=== PATIENT | female | born 1940 | race Caucasian/White ===

== ENCOUNTER 2022-03-24 12:32 | Outpatient (REF) | payer MEDICARE, BC, SELFPAY ==
[2022-03-24 13:01] LABS: Appearance Urine Cloudy (Clear); Bilirubin Urine Negative (Negative); Blood Urine 2+ (Negative); Color Urine Yellow (Yellow); Glucose Urine Trace (Negative); Ketones Urine Negative (Negative); Leukocyte Esterase Urine 3+ (Negative); Nitrite Urine Positive (Negative); Protein Urine 1+ (Negative); pH Urine 5.5 (5.0-8.5)
[2022-03-24 13:19] LABS: Bacteria Urine Many; Squamous Epithelial Cell Urine Moderate (None-Few)
== END 2022-03-24 12:33 | disposition home or self-care (01) ==
LOC: NPINS 12:32
PROVIDERS: PCP Family Medicine; Visit Provider Nurse Practitioner Gerontology
DX: R39.15 Urgency of urination (principal)
CPT/HCPCS: 81001; 87086; 87186

== ENCOUNTER 2022-04-19 09:06 | Outpatient (REF) | payer BC, SELFPAY ==
[2022-04-19 10:14] LABS: Basophils Absolute Auto 0.02 K/uL (0.00-0.30); Basophils Percent Auto 0.4 % (0.0-3.0); Eosinophils Absolute Auto 0.02 K/uL (0.00-0.50); Eosinophils Percent Auto 0.4 % (0.0-7.0); Hematocrit 26.9 % (33.0-51.0); Hemoglobin* 9.2 gm/dL (12.0-16.0); Immature Granulocytes Abs Auto 0.02 K/uL (0.00-0.30); Immature Granulocytes Pct Auto 0.4 %; Lymphocytes Absolute Auto 1.38 K/uL (0.90-2.90); Lymphocytes Percent Auto 30.4 % (20-44); Mean Corpuscular HGB Conc 34 gm/dL (32-36); Mean Corpuscular Hemoglobin 30 pg (26-34); Mean Corpuscular Volume 88 fL (80-100); Monocytes Percent Auto 10.4 % (0.0-11.0); Neutrophils Absolute Auto 2.63 K/uL (1.7-7.0); Platelet Count* 154 K/uL (140-440); RDW Coefficient of Variation % 12.1 % (11.5-15.5); Red Blood Count 3.05 m/uL (4.00-5.20); White Blood Count* 4.54 K/uL (4.50-11.00)
[2022-04-19 10:15] LABS: Chloride* 99 mmol/L (96-114); Potassium* 4.6 mmol/L (3.6-5.1); Sodium* 136 mmol/L (135-149)
[2022-04-19 10:18] LABS: Carbon Dioxide* 26 mmol/L (20-32); Creatinine* 1.9 mg/dL (0.5-1.5); Estimated Glomerular Filt Rate 26 ml/min; Slide Review Reflex Yes
[2022-04-19 10:19] LABS: Blood Urea Nitrogen* 48 mg/dL (7-30); Calcium* 9.6 mg/dL (8.4-10.6); Glucose* 215 mg/dL (60-115)
[2022-04-19 10:31] LABS: Hemoglobin A1C* 9.84 % (0-5.6)
[2022-04-19 10:43] LABS: Slide Review Acceptable Review (Acceptable)
== END 2022-04-19 09:07 | disposition home or self-care (01) ==
LOC: NPINS 09:06
PROVIDERS: PCP Family Medicine; Visit Provider Nurse Practitioner Gerontology
DX: E11.9 Type 2 diabetes mellitus without complications (principal)
CPT/HCPCS: 80048; 83036; 85025

== ENCOUNTER 2022-05-24 20:22 | Outpatient (CLI) | payer BC, SELFPAY | END 2022-05-24 20:23 | disposition home or self-care (01) | LOC: AMB 06-02 20:11 | PROVIDERS: PCP Family Medicine; Visit Provider Family Medicine | DX: R55 Syncope and collapse (principal) | CPT/HCPCS: A0425; A0427 ==

== ENCOUNTER 2022-05-24 20:38 | Emergency (ER) | payer BC, SELFPAY ==
[2022-05-24 20:52] VITALS: BP 142/93; PULSE 97; RESP 20; TEMP 36.4; O2SAT 95
--- NOTE | 2022-05-24 21:52 | CRLHL7_ITS ---
For Patients: As a result of the Century Cures Act, medical imaging exams and procedure reports are released immediately into your electronic medical record. You may view this report before your referring provider. If you have questions, please contact your health care provider. INDICATION: Altered mental status. TECHNIQUE: Chest 1 view(s) COMPARISON: None. FINDINGS: Cardiomediastinal silhouette and pulmonary vasculature are normal. Relatively symmetric prominence of the bilateral interstitial lung markings. No focal consolidation. No significant layering pleural effusion, no definite pneumothorax. No acute chest wall abnormality. IMPRESSION: Symmetric prominence of the bilateral interstitial lung markings, may reflect chronic senescent/fibrotic changes versus mild pulmonary edema. No focal consolidation. Dictated by Yun Elizondo MD @ 05/24/2022 10:20:09 PM (Electronically Signed)
[2022-05-24] MEDS: 0.9 % SODIUM CHLORIDE 1000 ml 1,000 ML IV (22:00)
[2022-05-24 22:06] LABS: Basophils Absolute Auto 0.02 K/uL (0.00-0.30); Basophils Percent Auto 0.3 % (0.0-3.0); Eosinophils Absolute Auto 0.01 K/uL (0.00-0.50); Eosinophils Percent Auto 0.2 % (0.0-7.0); Hematocrit 28.4 % (33.0-51.0); Hemoglobin* 9.9 gm/dL (12.0-16.0); Immature Granulocytes Abs Auto 0.01 K/uL (0.00-0.30); Immature Granulocytes Pct Auto 0.2 %; Lymphocytes Percent Auto 11.7 % (20-44); Mean Corpuscular HGB Conc 35 gm/dL (32-36); Mean Corpuscular Hemoglobin 30 pg (26-34); Mean Corpuscular Volume 85 fL (80-100); Monocytes Percent Auto 5.9 % (0.0-11.0); Neutrophils Percent Auto 81.7 % (42.0-72.0); Platelet Count* 207 K/uL (140-440); RDW Coefficient of Variation % 12.2 % (11.5-15.5); Red Blood Count 3.33 m/uL (4.00-5.20)
[2022-05-24 22:12] LABS: Slide Review Reflex No
[2022-05-24 22:14] LABS: PCR FLU A Negative PCR FLU A (Negative); PCR FLU B Negative PCR FLU B (Negative); PCR RSV Negative PCR RSV (Negative)
[2022-05-24 22:19] LABS: SARS PCR* Negative SARS-CoV-2 (Negative)
[2022-05-24 22:20] LABS: Chloride* 97 mmol/L (96-114); Potassium* 4.6 mmol/L (3.6-5.1); Sodium* 133 mmol/L (135-149)
[2022-05-24 22:23] LABS: Creatinine* 1.3 mg/dL (0.5-1.5); Estimated Glomerular Filt Rate 41 ml/min
[2022-05-24 22:24] LABS: Blood Urea Nitrogen* 30 mg/dL (7-30); Calcium* 9.9 mg/dL (8.4-10.6); Carbon Dioxide* 26 mmol/L (20-32)
[2022-05-24 22:40] LABS: C Reactive Protein* < 0.5 mg/dL (0.5-1.0); Glucose* 605 mg/dL (60-115)
[2022-05-24 23:00] VITALS: O2SAT 96
--- NOTE | 2022-05-24 23:00 | ED.NURSE ---
Straight cath and drained 400mL of clear, yellow urine. 2 sets of bl cx collected. #20G IV established in R AC. Arm board in place, IVF infusing well.
[2022-05-24 23:13] LABS: Appearance Urine Clear (Clear); Bilirubin Urine Negative (Negative); Blood Urine Negative (Negative); Color Urine Yellow (Yellow); Glucose Urine 3+ (Negative); Ketones Urine Negative (Negative); Leukocyte Esterase Urine Negative (Negative); Nitrite Urine Negative (Negative); Protein Urine Negative (Negative); Urobilinogen Urine 0.2 (0.2-1.0); pH Urine 5.5 (5.0-8.5)
[2022-05-24 23:24] LABS: RBC Urine 0-2 (0-2); Squamous Epithelial Cell Urine Few (None-Few); WBC Urine 0-2 (0-5)
[2022-05-24 23:39] VITALS: PULSE 80; RESP 18; O2SAT 96
--- NOTE | 2022-05-24 23:54 | ED.NURSE ---
Report given to CRISTO Chan.
--- NOTE | 2022-05-25 00:11 | ED.NURSE ---
Patient remains confused in room. Patient is able to sit on the edge of the bed, but cannot stand x 2 assist.
--- NOTE | 2022-05-25 00:13 | CRLHL7_ITS ---
For Patients: As a result of the Century Cures Act, medical imaging exams and procedure reports are released immediately into your electronic medical record. You may view this report before your referring provider. If you have questions, please contact your health care provider. INDICATION: Altered mental status. TECHNIQUE: Head CT without contrast. COMPARISON: None. FINDINGS: CSF spaces: Within normal limits for age. Brain parenchyma: Mild generalized cerebral and cerebellar atrophy. Patchy white matter low attenuation changes, nonspecific but likely reflecting chronic small vessel ischemic disease. No sign of mass, hemorrhage, or midline shift. Atherosclerotic calcifications of the cavernous carotids and carotid siphons. Skull base and calvarium: Mild mucosal thickening left maxillary sinus. Mastoid air cells are clear. The visualized orbits are grossly unremarkable. No skull fractures. IMPRESSION: 1. No acute intracranial hemorrhage or mass effect. 2. Senescent changes including mild generalized volume loss, chronic small vessel ischemic disease, and intracranial carotid atherosclerotic calcifications. Please note that all CT scans at this facility use dose modulation, iterative reconstruction, and/or weight-based dosing when appropriate to reduce radiation dose to as low as reasonably achievable. Dictated by Bashir Matthews MD @ 05/25/2022 12:46:33 AM (Electronically Signed)
[2022-05-25 00:23] LABS: Troponin I* < 0.01 ng/mL (0.01-0.04)
[2022-05-25 00:24] LABS: NT Pro B Type NatriureticPept* 820 pg/mL
--- NOTE | 2022-05-25 00:24 | ED.GENADULT ---
HPI - General Adult General Chief complaint: Diabetic Related Problem Stated complaint: Diabetic Complications Time Seen by Provider: 05/24/22 21:00 History of Present Illness HPI narrative: 82-year-old woman brought to the emergency department by EMS after being found head slumped forward and drooling in her chair. Was laid on the ground and then assessed by EMS. Apparently was presumed to be weaker. She is definitely fearful. Reportedly normal baseline is ambulatory and communicative but is only demonstrating fearfulness and batting away care providers and when I assess her is requesting that someone kill her please. Is alternately accusing others of stealing her baby. Enquiring about pain she does not really answer the question directly but does not appear to be in any focal pain. Underlying history of dementia and diabetes. Treated with metformin. Has been known to be affected by urinary tract infections in the past. Blood sugar by EMS noted at 594. Related Data Home Medications Medication Instructions Recorded Confirmed amlodipine 5 mg tablet 5 mg PO DAILY 05/24/22 05/24/22 atenolol 50 mg tablet 50 mg PO DAILY 05/24/22 05/24/22 atorvastatin 20 mg tablet 20 mg PO HS 05/24/22 05/24/22 carbamide peroxide 6.5 % ear drops 3 drp otic (ear) HS 05/24/22 05/24/22 (Debrox) famotidine 20 mg tablet 20 mg PO DAILY 05/24/22 05/24/22 lisinopril 40 mg tablet 40 mg PO DAILY 05/24/22 05/24/22 metformin 500 mg tablet,extended 1,000 mg PO HS 05/24/22 05/24/22 release 24 hr mirtazapine 15 mg tablet 15 mg PO DAILY 05/24/22 05/24/22 Allergies Allergy/AdvReac Type Severity Reaction Status Date / Time nut - unspecified Allergy Verified 05/24/22 20:59 peanut Allergy Verified 05/24/22 20:59 sulfamethoxazole Allergy Verified 05/24/22 20:59 [From Sulfamethoxazole-Trimethoprim] tree nut Allergy Verified 05/24/22 20:59 trimethoprim Allergy Verified 05/24/22 20:59 [From Sulfamethoxazole-Trimethoprim] Review of Systems Status of ROS: Reports: unobtainable due to mental status PFSH PFSH Social History Smoking Status: Unknown if ever smoked Exam Narrative: Exam Narrative: Appears to be afraid otherwise in no distress. Curled up on her left side. Head looks to be atraumatic. Cranial nerves 2 through 12 to be intact. Is breathing easily. Lungs appear to be clear. Oropharynx is moist though there is dried spittle on her lips. Neck is supple appears to be nontender. Back is without deformity other than some mild kyphotic change in the upper spine. Nontender. Cardiovascular appears to be in a regular rate and rhythm --due to vocalizations cannot really assess for murmur rub or gallop. Abdomen is soft. At this time she is also crying out but I believe actually to be nontender. Certainly able to move all extremities and is well perfused. Const: Vital Signs, click to edit/add: Vital Signs - 24 hr 05/24/22 20:52 05/24/22 23:39 05/24/22 23:00 Temperature 97.5 F L Pulse Rate [Pulse Oximeter] 97 80 Respiratory Rate 20 18 Blood Pressure [Ri ght Upper Arm] 142/93 H Pulse Oximetry 95 96 96 Oxygen Delivery Me thod Room Air Room Air 05/25/22 01:41 Temperature Pulse Rate [Pulse Oximeter] Respiratory Rate Blood Pressure [Ri ght Upper Arm] Pulse Oximetry 96 Oxygen Delivery Me thod Documenting provider has reviewed patient's vital signs: yes Course Consultations Consultation #1: Workup complete attempted to call all family members/emergency contacts at all numbers listed. No responses. I am anticipating sleeping in the emergency department overnight with re-evaluation in the morning. Handing off at change of shift. Time: 01:24 Vital Signs Vital signs: Initial Vital Signs Temperature 97.5 F L 05/24/22 20:52 Temperature Source Temporal Artery Scan 05/24/22 20:52 Pulse Rate 97 05/24/22 20:52 Respiratory Rate 20 05/24/22 20:52 Blood Pressure 142/93 H 05/24/22 20:52 Blood Pressure Mean 109 05/24/22 20:52 Blood Pressure Position Supine 05/24/22 20:52 Pulse Oximetry 95 05/24/22 20:52 Oxygen Delivery Method 05/24/22 20:52 Vital Signs Temperature 97.5 F L 05/24/22 20:52 Pulse Rate 97 05/24/22 20:52 Respiratory Rate 20 05/24/22 20:52 Blood Pressure 142/93 H 05/24/22 20:52 Pulse Oximetry 95 05/24/22 20:52 Oxygen Delivery Method 05/24/22 20:52 Temperature 97.5 F L 05/24/22 20:52 Pulse Rate 80 05/24/22 23:39 Respiratory Rate 18 05/24/22 23:39 Blood Pressure 142/93 H 05/24/22 20:52 Pulse Oximetry 96 05/25/22 01:41 Oxygen Delivery Method 05/24/22 23:39 Medical Decision Making MDM Narrative Medical decision making narrative: No focal findings on exam. Inclination is initially to obtain urinalysis and triple screen. But with both of these unremarkable and upon confirming usual level of cognition and mobility much higher, proceed with further laboratory evaluation. IV hydration as well. Blood sugar was in the 420s earlier today on review of records. Over 600 on BMP now. Probably not particularly useful to give insulin but perhaps affect of dosing would be useful to know on blood sugar and though doubtful, just possibly would affect mental status. In lab evaluation there is no indication of infection or other abnormality other than mildly low hemoglobin. Chest x-ray does not appear to show infiltrate by my read. CT scan head by my read looks unremarkable for acute abnormality. I did have one brief conversation with Ms. Posey where was seen briefly lucid and insert a few questions yes or no indicating no pain and asked or clearly who I was accepting me answer. On nursing evaluation with efforts to mobilize, was again confused, fearful and either not able to cooperate or without the strength to stand unassisted. accu check pending Medical Records Medical records reviewed: Yes I reviewed the patient's medical records Lab Data Lab results reviewed: Yes I reviewed the patient's lab results Labs: Lab Results 05/24/22 05/24/22 05/24/22 Range/Units 21:30 21:52 21:52 WBC 5.80 (4.50-11.00) K/uL RBC 3.33 L (4.00-5.20) m/uL Hgb 9.9 L (12.0-16.0) gm/dL Hct 28.4 L (33.0-51.0) % MCV 85 (80-100) fL MCH 30 (26-34) pg MCHC 35 (32-36) gm/dL RDW Coeff of Asim 12.2 (11.5-15.5) % Plt Count 207 (140-440) K/uL Neut % (Auto) 81.7 H (42.0-72.0) % Lymph % (Auto) 11.7 L (20-44) % Waller % (Auto) 5.9 (0.0-11.0) % Eos % (Auto) 0.2 (0.0-7.0) % Baso % (Auto) 0.3 (0.0-3.0) % Neut # (Auto) 4.70 (1.7-7.0) K/uL Lymph # (Auto) 0.70 L (0.90-2.90) K/uL Waller # (Auto) 0.30 (0.00-0.90) K/UL Eos # (Auto) 0.01 (0.00-0.50) K/uL Baso # (Auto) 0.02 (0.00-0.30) K/uL Abs Immat Gran (auto) 0.01 (0.00-0.30) K/uL Imm/Tot Granulo (auto) 0.2 % Sodium 133 L (135-149) mmol/L Potassium 4.6 (3.6-5.1) mmol/L Chloride 97 (96-114) mmol/L Carbon Dioxide 26 (20-32) mmol/L BUN 30 (7-30) mg/dL Creatinine 1.3 (0.5-1.5) mg/dL Estimated GFR 41 ml/min Glucose 605 H* (60-115) mg/dL Calcium 9.9 (8.4-10.6) mg/dL Troponin I < 0.01 L (0.01-0.04) ng/mL C-Reactive Protein < 0.5 L (0.5-1.0) mg/dL NT-Pro-B Natriuret Pep 820 pg/mL Urine Color (Yellow) Urine Appearance (Clear) Urine pH (5.0-8.5) Ur Specific [place]idge (1.000-1.030) Urine Protein (Negative) Urine Glucose (UA) (Negative) Urine Ketones (Negative) Urine Blood (Negative) Urine Nitrite (Negative) Urine Bilirubin (Negative) Urine Urobilinogen (0.2-1.0) Ur Leukocyte Esterase (Negative) Urine RBC (0-2) Urine WBC (0-5) Ur Squamous Epith Cells (None-Few) Urine Bacteria (None) SARS-CoV-2 (PCR) Negative SARS-CoV-2 (Negative) Influenza Type A (PCR) Negative PCR FLU A (Negative) Influenza Type B (PCR) Negative PCR FLU B (Negative) RSV (PCR) Negative PCR RSV (Negative) 05/24/22 Range/Units 23:01 WBC (4.50-11.00) K/uL RBC (4.00-5.20) m/uL Hgb (12.0-16.0) gm/dL Hct (33.0-51.0) % MCV (80-100) fL MCH (26-34) pg MCHC (32-36) gm/dL RDW Coeff of Asim (11.5-15.5) % Plt Count (140-440) K/uL Neut % (Auto) (42.0-72.0) % Lymph % (Auto) (20-44) % Waller % (Auto) (0.0-11.0) % Eos % (Auto) (0.0-7.0) % Baso % (Auto) (0.0-3.0) % Neut # (Auto) (1.7-7.0) K/uL Lymph # (Auto) (0.90-2.90) K/uL Waller # (Auto) (0.00-0.90) K/UL Eos # (Auto) (0.00-0.50) K/uL Baso # (Auto) (0.00-0.30) K/uL Abs Immat Gran (auto) (0.00-0.30) K/uL Imm/Tot Granulo (auto) % Sodium (135-149) mmol/L Potassium (3.6-5.1) mmol/L Chloride (96-114) mmol/L Carbon Dioxide (20-32) mmol/L BUN (7-30) mg/dL Creatinine (0.5-1.5) mg/dL Estimated GFR ml/min Glucose (60-115) mg/dL Calcium (8.4-10.6) mg/dL Troponin I (0.01-0.04) ng/mL C-Reactive Protein (0.5-1.0) mg/dL NT-Pro-B Natriuret Pep pg/mL Urine Color Yellow (Yellow) Urine Appearance Clear (Clear) Urine pH 5.5 (5.0-8.5) Ur Specific [place] 1.010 (1.000-1.030) Urine Protein Negative (Negative) Urine Glucose (UA) 3+ A (Negative) Urine Ketones Negative (Negative) Urine Blood Negative (Negative) Urine Nitrite Negative (Negative) Urine Bilirubin Negative (Negative) Urine Urobilinogen 0.2 (0.2-1.0) Ur Leukocyte Esterase Negative (Negative) Urine RBC 0-2 (0-2) Urine WBC 0-2 (0-5) Ur Squamous Epith Cells Few (None-Few) Urine Bacteria None (None) SARS-CoV-2 (PCR) (Negative) Influenza Type A (PCR) (Negative) Influenza Type B (PCR) (Negative) RSV (PCR) (Negative) Discharge Plan Discharge Clinical Impression: Hyperglycemia, Altered mental status Prescriptions: No Action amlodipine 5 mg tablet 5 mg PO DAILY Label Comments: TAKE ONE TABLET BY MOUTH ONCE DAILY atenolol 50 mg tablet 50 mg PO DAILY Label Comments: TAKE ONE TABLET BY MOUTH ONCE EVERY MORNING atorvastatin 20 mg tablet 20 mg PO HS Label Comments: Take TAKE ONE TABLET BY MOUTH AT BEDTIME Debrox 6.5 % drops 3 drp otic (ear) HS Label Comments: Instill 3 drop into right ear every night X3 days then flush famotidine 20 mg tablet 20 mg PO DAILY Label Comments: TAKE 1 TABLET BY MOUTH ONCE DAILY lisinopril 40 mg tablet 40 mg PO DAILY Label Comments: 1 tablet by mouth once a day metformin 500 mg tablet extended release 24 hr 1,000 mg PO HS Label Comments: TAKE TWO TABLETS BY MOUTH ONCE DAILY mirtazapine 15 mg tablet 15 mg PO DAILY Label Comments: TAKE ONE-HALF TABLET BY MOUTH AT BEDTIME FOR 7 DAYS THEN 1 TABLET AT BEDTIME ONGOING Follow Up/Referrals: Carole Bonilla MD [Primary Care Provider] -
[2022-05-25 01:00] VITALS: BP 141/103; PULSE 65; RESP 16; O2SAT 97
[2022-05-25 01:41] VITALS: O2SAT 96
[2022-05-25 05:00] VITALS: BP 141/103; PULSE 66; RESP 16; O2SAT 92
--- NOTE | 2022-05-25 05:37 | ED.NURSE ---
speaking to son-in-law on the phone.
[2022-05-25 08:30] VITALS: BP 140/69; PULSE 74; RESP 20; O2SAT 94
--- NOTE | 2022-05-25 09:03 | ED.NURSE ---
pt confused, keeps saying her baby . pt says to go away but is somewhat cooperative with cares. labs drawn. blood sugar checked and is 225. pt incont of urine. depends and bedding changed. breakfast ordered.
[2022-05-25 09:14] LABS: HCO3 VBG 27 mmol/L (21-28); PCO2 VBG 33 mmHG (40-50); PO2 VBG 46.3 mmHG (25-47); pH VBG 7.517 (7.32-7.43)
[2022-05-25 09:25] LABS: Chloride* 105 mmol/L (96-114); Potassium* 3.9 mmol/L (3.6-5.1); Sodium* 136 mmol/L (135-149)
[2022-05-25 09:28] LABS: Blood Urea Nitrogen* 25 mg/dL (7-30); Carbon Dioxide* 26 mmol/L (20-32); Estimated Glomerular Filt Rate 56 ml/min
[2022-05-25 09:29] LABS: Calcium* 9.6 mg/dL (8.4-10.6); Glucose* 235 mg/dL (60-115)
[2022-05-25] MEDS: OLANZapine 5 MG/ML inj 2.5 MG IVP (09:30)
--- NOTE | 2022-05-25 09:49 | ED.NURSE ---
pt's son in law, linda [facility] and said they would prefer pt to return to [facility] care. dr. escoto would like to monitor pt a little longer in ED and then send back to [facility] if appropriate.
--- NOTE | 2022-05-25 10:08 | ED.NURSE ---
Pt's daughter is going to be here in an hour. she [facility] be [facility].
--- NOTE | 2022-05-25 11:56 | ED.NURSE ---
Pt dressed by inspector [employer] and pt's daughter and assisted into wheelchair. Pt able to stand and pivot to sit in wheelchair with assist of 2. Report called to Rae Patton.
== END 2022-05-25 11:59 | disposition home or self-care (01) ==
PROVIDERS: Family Medicine; Emergency Provider Family Medicine; PCP Family Medicine
DX: E11.65 Type 2 diabetes mellitus with hyperglycemia (principal); R41.82 Altered mental status, unspecified; R45.1 Restlessness and agitation
CPT/HCPCS: 36415; 70450; 71045; 80048; 81001; 82803; 82962; 83880; 84484; 85025; 86140; 87040; 87502; 87634; 87635; 93005; 94761; 96374; 99284; 99285; J7030; S0166